=== PATIENT | male | born 1970 | race American Indian/Alaskan Native ===

== ENCOUNTER 2020-01-09 09:34 | Outpatient (CLI) | payer OTHER ==
--- NOTE | 2020-01-09 15:07 | Magnetic Resonance Report ---
MRI PELVIS WITHOUT CONTRAST INDICATION / CLINICAL INFORMATION: MAIN: PAIN IN PENIS. COMPARISON: None available. TECHNIQUE: Multisequence, multiplanar images were obtained. FINDINGS: No significant abnormality of the venous. No hydrocele. Testes unremarkable. Mild prominent vessels i n the spermatic cords on both sides. No groin hernia. There is a nodular focus of low T2 signal intensity in the left peripheral zone of the prostate that measures about 1.2 cm (series 7 image 30). BONES: No significant bone marrow edema. No fracture. No osseous lesion. RIGHT HIP JOINT: No significant abnormality. LEFT HIP JOINT: No significant abnormality. MUSCLES/TENDONS: No significant abnormality. SUBCUTANEOUS SOFT TISSUES: No significant abnormality. SOFT TISSUE WITHIN PELVIS: No significant abnormality. IMPRESSION: 1. Nodular low T2 signal intensity focus in the left peripheral zones of prostate is indeterminate. Correlation with PSA concentration is recommended. 2. Mildly prominent gonadal vessels bilaterally. Consider follow-up scrotal ultrasound with Doppler analysis to evaluate for varicoceles. 3. No significant abnormality of the penis. This examination was discussed by and reviewed with Dr. Vamsi Mcdaniel. Signer Name: Hans Cedillo MD Signed: 01/09/2020 3:03 PM Workstation Name: [id number]
== END 2020-01-09 09:35 | disposition home or self-care (01) ==
LOC: MRI 09:34
PROVIDERS: ATTEND Urology
DX: N48.89 Other specified disorders of penis (principal)
CPT/HCPCS: 72195